=== PATIENT | female | born 1980 | race American Indian/Alaskan Native ===

== ENCOUNTER 2017-09-27 12:41 | Emergency (ER) | payer OTHER ==
[2017-09-27 12:53] VITALS: BP 145/92
--- NOTE | 2017-09-27 13:34 | Emergency Department Report ---
ED Rash HPI - HPI Chief Complaint: Skin Rash Stated Complaint: HIVES/BRUSIES RT SIDE Time Seen by Provider: 09/27/17 13:00 Duration: on/off since Location: Chest, Back, Upper Extremities, Lower Extremities Suspected Cause: Unknown Rash Symptoms: Yes Itching (hives, generalized), No Facial Swelling, No Tongue/ Oral Swelling, No Breathing Difficulties, No Choking Sensation, No Wheezing/ Dyspnea, No Peeling, No Blistering, No Fever, No Lightheaded, No Malaise, No Myalgias Severity: moderate Other History: This is 37-year-old female who reports that she has been having hives since March 2017. Denies any fever or chills or nausea or vomiting. Denies any stridor, wheezing or cough. ED Review of Systems ROS: Stated complaint: HIVES/BRUSIES RT SIDE Other details as noted in HPI Constitutional: denies: chills, fever ENT: denies: throat pain, congestion Respiratory: denies: cough, shortness of breath, SOB with exertion, SOB at rest , stridor, wheezing Cardiovascular: denies: chest pain, palpitations, dyspnea on exertion, edema, syncope, paroxysmal nocturnal dyspnea Gastrointestinal: denies: abdominal pain, nausea, vomiting Musculoskeletal: denies: back pain, joint swelling, arthralgia, myalgia Skin: rash, pruritus Neurological: denies: headache, paresthesias ED Past Medical Hx - Past Medical History Previous Medical History?: No - Surgical History Past Surgical History?: Yes Hx Cholecystectomy: Yes Additional Surgical History: tonsilectomy, x2, left knee surgery - Family History Family history: hypertension - Social History Smoking Status: Former Smoker Substance Use Type: None - Medications Home Medications: Home Medications Medication Instructions Recorded Confirmed Last Taken Type hydrOXYzine HCL [Atarax] 25 mg PO Q6HR PRN #16 tablet 09/27/17 Unknown Rx methylPREDNISolone [Medrol Dose 4 mg PO DAILY #1 tab.ds.pk 09/27/17 Unknown Rx Ojse] Rash Exam - Exam General: Vital signs noted. No distress. Alert and acting appropriately. This is a 37-year-old female with a rash with follow-up in no acute distress HEENT: No Periorbital Edema, No Conjuctival Injection, No Chemosis, No Perioral Edema, No Tongue Edema, No Uvular Edema, No Compromised Airway, No Drooling Lungs: Yes Good Air Exchange (CTAB), No Wheezes, No Ronchi, No Stridor, No Cough , No Labored Respirations, No Retractions, No Use of Accessory Muscles, No Other Abnormal Lung Sounds Heart: Yes Regular (tachycardic, S1 and S2), No Murmur Skin: Yes Urticarial Rash (chest, back, upper extremities), Yes Erythema, No Maculopapular Rash, No Morbilliform rash, No Bulla(e), No Excoriations, No Weeping, No Tenderness, No Edema, No Encrustations, No Other Other: Positive: Abdomen Normal, Neurologic Normal, Musculoskeletal Normal ED Course Vital Signs 09/27/17 12:48 Temperature 98.1 F Pulse Rate 104 H Respiratory 18 Rate Blood Pressure 145/92 O2 Sat by Pulse 99 Oximetry Vital Signs 09/27/17 09/27/17 12:48 13:33 Temperature 98.1 F Pulse Rate 104 H 88 Respiratory 18 Rate Blood Pressure 145/92 O2 Sat by Pulse 99 Oximetry - Reevaluation(s) Reevaluation #1: 09/27/17 14:03 Patient given Solu-Medrol 125 mg IM for hives. Hives to subside in ED Medical Decision Making - Medical Decision Making This is a 37-year-old female well-nourished well-developed in no acute distress. Critical care attestation.: If time is entered above; I have spent that time in minutes in the direct care of this critically ill patient, excluding procedure time. ED Disposition Clinical Impression: Hives, Pruritic rash Disposition: [id number] TO HOME OR SELFCARE Is pt being admited?: No Does the pt Need Aspirin: No Condition: Stable Instructions: Urticaria (ED), Itchy Skin (ED) Additional Instructions: Please take Atarax for itching but please do not drive or operate heavy machinery that this medication causes drowsiness Medrol Dosepak as prescribed Follow-up with facilities maintenance supervisor as previously instructed by primary care. Since she do not have a primary care physician he can follow up with [facility] in 4 days If his symptoms worsens, return to emergency room Prescriptions: hydrOXYzine HCL [Atarax] 25 mg PO Q6HR PRN #16 tablet PRN Reason: Itching methylPREDNISolone [Medrol Dose Jose] 4 mg PO DAILY #1 tab.ds.pk Referrals: LISA BUCIO MD [Primary Care Provider] - 09/28/17 ELROY CADET MD [Staff Physician] - 09/28/17 [facility] [Outside] - 09/28/17 Forms: Work/School Release Form(ED)
== END 2017-09-27 14:20 | disposition home or self-care (01) ==
LOC: ED 12:41
DX: L50.9 Urticaria, unspecified (principal); R21 Rash and other nonspecific skin eruption; Z90.49 Acquired absence of other specified parts of digestive tract; Z87.891 Personal history of nicotine dependence
CPT/HCPCS: 96372; 99282; J2930